=== PATIENT | male | born 1940 | race Caucasian/White ===

== ENCOUNTER 2018-03-05 00:02 | Emergency (ER) | payer MEDICARE, OTHER ==
[~2018-03-05] VITALS: Ht 177.8 cm; Wt 99.6 kg
--- NOTE | 2018-03-05 00:26 | PHYS DOC ---
Adult General Chief Complaint Chief Complaint: CHEST PAIN [facility] HPI 77-year-old male with a history of coronary disease status post multiple stents in 2015 presents with approximately 2 hour history of chest discomfort. He states it's tightness across his chest. He states at home he took 3 back-to- back nitroglycerin with no relief of his pain he waited approximately 15 minutes took 3 more with no effect and then possibly 20 minutes after that took 3 more nitroglycerin for a total of 9 nitroglycerin with very little help in regards to his chest pain. He didn't became very concerned and called EMS and on their arrival they gave him 4 baby aspirin. He states after he took a baby aspirin the pain resolved. He denies any nausea. He denies diaphoresis. He denies any shortness of breath or dyspnea on exertion. He states he's unsure whether these pains feel similar to his previous heart attack.[] Review of Systems Review of Systems Constitutional: Denies fever or chills [] Eyes: Denies change in visual acuity, redness, or eye pain [] HENT: Denies nasal congestion or sore throat [] Respiratory: Denies cough or shortness of breath [] Cardiovascular: No additional information not addressed in HPI [] GI: Denies abdominal pain, nausea, vomiting, bloody stools or diarrhea [] : Denies dysuria or hematuria [] Musculoskeletal: Denies back pain or joint pain [] Integument: Denies rash or skin lesions [] Neurologic: Denies headache, focal weakness or sensory changes [] Endocrine: Denies polyuria or polydipsia [] All other systems were reviewed and found to be within normal limits, except as documented in this note. Allergies Allergies Allergies Coded Allergies Type Severity Reaction Last Updated Verified penicillin G Allergy Unknown 03/05/18 Yes penicillin G procaine Allergy Unknown 03/05/18 Yes Physical Exam Physical Exam Constitutional: Well developed, well nourished, no acute distress, non-toxic appearance. [] HENT: Normocephalic, atraumatic, bilateral external ears normal, oropharynx moist, no oral exudates, nose normal. [] Eyes: PERRLA, EOMI, conjunctiva normal, no discharge. [] Neck: Normal range of motion, no tenderness, supple, no stridor. [] Cardiovascular:Heart rate regular rhythm, no murmur [] Lungs & Thorax: Bilateral breath sounds clear to auscultation [] Abdomen: Bowel sounds normal, soft, no tenderness, no masses, no pulsatile masses. [] Skin: Warm, dry, no erythema, no rash. [] Back: No tenderness, no CVA tenderness. [] Extremities: No tenderness, no cyanosis, no clubbing, ROM intact, no edema. [] Neurologic: Alert and oriented X 3, normal motor function, normal sensory function, no focal deficits noted. [] Psychologic: Affect normal, judgement normal, mood normal. [] Current Patient Data Lab Results Laboratory Tests Test 03/05/18 00:14 White Blood Count 5.9 x10^3/uL Red Blood Count 5.00 x10^6/uL Hemoglobin 15.4 g/dL Hematocrit 44.7 % Mean Corpuscular Volume 90 fL Mean Corpuscular Hemoglobin 31 pg Mean Corpuscular Hemoglobin Concent 34 g/dL Red Cell Distribution Width 13.7 % Platelet Count 174 x10^3/uL Neutrophils (%) (Auto) 59 % Lymphocytes (%) (Auto) 28 % Monocytes (%) (Auto) 9 % Eosinophils (%) (Auto) 3 % Basophils (%) (Auto) 1 % Neutrophils # (Auto) 3.5 x10^3uL Lymphocytes # (Auto) 1.6 x10^3/uL Monocytes # (Auto) 0.5 x10^3/uL Eosinophils # (Auto) 0.2 x10^3/uL Basophils # (Auto) 0.0 x10^3/uL Prothrombin Time 9.9 SEC Prothromb Time International Ratio 1.0 Sodium Level 139 mmol/L Potassium Level 3.8 mmol/L Chloride Level 103 mmol/L Carbon Dioxide Level 27 mmol/L Anion Gap 9 Blood Urea Nitrogen 14 mg/dL Creatinine 1.1 mg/dL Estimated GFR (Cockcroft-Gault) 64.7 BUN/Creatinine Ratio 13 Glucose Level 125 mg/dL Calcium Level 8.9 mg/dL Total Bilirubin 0.3 mg/dL Aspartate Amino Transf (AST/SGOT) 19 U/L Alanine Aminotransferase (ALT/SGPT) 36 U/L Alkaline Phosphatase 103 U/L Troponin I Quantitative 0.137 ng/mL [id number] Natriuretic Peptide 70 pg/mL Total Protein 7.6 g/dL Albumin 3.9 g/dL Albumin/Globulin Ratio 1.1 EKG EKG [EKG: Normal sinus rhythm rate of [address]-T changes] Radiology/Procedures Radiology/Procedures [Chest x-ray: Negative exam as interpreted by me] Course & Med Decision Making Course & Med Decision Making Pertinent Labs and Imaging studies reviewed. 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 He had what sounded like two-hour history of typical chest discomfort alleviated by nitroglycerin and aspirin. His EKG was negative here his chest x-ray was negative first troponin was 0.1. He was given 1 mg/kg of Lovenox and topical nitroglycerin was placed. The patient remained chest pain- free throughout his stay in the department. Given his elevated troponin and likely need for intervention patient will be transferred to [place] for further evaluation.] Dragon Disclaimer Dragon Disclaimer This electronic medical record was generated, in whole or in part, using a voice recognition dictation system. Departure Departure: Impression: Primary Impression: Chest pain Disposition: 05 XFER OTHER ([place]) Condition: GUARDED Problem Qualifiers Primary Impression: Chest pain Chest pain type: unspecified Qualified Codes: R07.9 - Chest pain, unspecified KARIE KABA DO Mar 05, 2018 00:26
[2018-03-05 00:32] LABS: BASO % 1 % (0-3); EOS # 0.2 x10^3/uL (0.0-0.7); EOS % 3 % (0-3); HEMATOCRIT 44.7 % (39.0-53.0); HEMOGLOBIN 15.4 g/dL (13.0-17.5); LYMPH # 1.6 x10^3/uL (1.0-4.8); LYMPH % 28 % (24-48); MEAN CORPUSCULAR HEMOGLOBIN 31 pg (25-35); MEAN CORPUSCULAR HGB CONC 34 g/dL (31-37); MEAN CORPUSCULAR VOLUME 90 fL (79-100); MONO # 0.5 x10^3/uL (0.0-1.1); MONO % 9 % (0-9); NEUT # 3.5 x10^3uL (1.8-7.7); NEUT % 59 % (31-73); PLATELET COUNT 174 x10^3/uL (140-400); RED CELL DISTRIBUTION WIDTH 13.7 % (11.5-14.5); WHITE BLOOD COUNT 5.9 x10^3/uL (4.0-11.0)
--- NOTE | 2018-03-05 00:44 | EKG ---
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
[2018-03-05 00:49] LABS: ALBUMIN 3.9 g/dL (3.4-5.0); ALBUMIN/GLOBULIN RATIO 1.1 (1.0-1.7); CALCIUM 8.9 mg/dL (8.5-10.1); CREATININE 1.1 mg/dL (0.7-1.3); GFR 64.7; POTASSIUM 3.8 mmol/L (3.5-5.1); TOTAL BILIRUBIN 0.3 mg/dL (0.2-1.0); TOTAL PROTEIN 7.6 g/dL (6.4-8.2)
[2018-03-05] MEDS ORDERED: NITROGLYCERIN OINT 1 GM PACKET. TP ONE (01:00)
[2018-03-05] MEDS ORDERED: ENOXAPARIN ** NOTE DOSE ** SYRINGE SQ ONE (01:00)
--- NOTE | 2018-03-05 01:05 | RAD ---
Indication: Chest pain. TECHNIQUE: Portable AP upright chest x-ray COMPARISON: None FINDINGS: Heart is normal in size. Minimal likely subsegmental atelectasis in the left lung base. Otherwise, lungs are clear. Punctate calcified granuloma is seen in the right lung apex. No pneumothorax or pleural effusion. Visualized bony thorax within normal limits. IMPRESSION: No acute cardiopulmonary process. Electronically signed by: Dharmesh King DO (03/05/2018 1:02 AM) [facility]
[2018-03-05 01:38] VITALS: BP 155/86
== END 2018-03-05 02:10 | disposition short-term general hospital (02) ==
LOC: ER 00:02
DX: R07.89 Other chest pain (principal); I25.10 Atherosclerotic heart disease of native coronary artery without angina pectoris; Z88.0 Allergy status to penicillin
CPT/HCPCS: 36415; 71045; 80053; 83880; 84484; 85025; 85610; 93005; 96372; 99285; J1650

== ENCOUNTER 2018-07-02 17:54 | Inpatient (IN) | payer MEDICARE, OTHER ==
[~2018-07-02] VITALS: Ht 177.8 cm; Wt 88.2 kg
[2018-07-02] MEDS ORDERED: IV RINGERS SOLUTION,LACTATED 1,000 ML IV SCH (18:03)
--- NOTE | 2018-07-02 18:03 | ED.ADGEN ---
Past History Past Medical History: CAD, CVA, High Cholesterol, Hypertension, Migraines, TIA , Other Past Surgical History: Coronary Bypass Surgery, Other Alcohol Use: None Drug Use: None Adult General Chief Complaint Chief Complaint ".. I ve had this headache since yesterday... top my head.. " (Note previous report on this patient lost s during computer glitch- may have duplication and inconsistencies_) " I did have some vision loss in my Lt eye 3 days ago.. I got a MRI and said it was due to small vessel changes." " This headache has een present the last 2 days.." HPI HPI Patient is a 78 year old male who presents with above hx and complaints of headache. Patient localizes headache to the top of his head. No history of trauma. No history of changes in vision. No other focal defects noted. Patient has had no change in meds. Patient is no longer anticoagulated since his quadruple bypass in March 09 of this past year at [facility]. Patient does take a daily aspirin. No recent travel. No specific ill contacts. Does have extensive medical history of hypertension/ hypotension, urinary artery disease, elevated cholesterol, CVA. [place] Coma Scale 14. Review of Systems Review of Systems Constitutional: Denies fever or chills [] Eyes: Denies change in visual acuity, redness, or eye pain [] HENT: Denies nasal congestion or sore throat [] Respiratory: Denies cough or shortness of breath [] Cardiovascular: No additional information not addressed in HPI [] GI: Denies abdominal pain, nausea, vomiting, bloody stools or diarrhea [] : Denies dysuria or hematuria [] Musculoskeletal: Denies back pain or joint pain [] Integument: Denies rash or skin lesions [] Neurologic: Complaints of headache, denies focal weakness or sensory changes [] does have recent vision loss and left eye Endocrine: Denies polyuria or polydipsia [] All other systems were reviewed and found to be within normal limits, except as documented in this note. Family History Family History Non-contributory Current Medications Current Medications See nursing for home meds Allergies Allergies Allergies Coded Allergies Type Severity Reaction Last Updated Verified penicillin G Allergy Unknown 03/05/18 Yes penicillin G procaine Allergy Unknown 03/05/18 Yes Physical Exam Physical Exam Constitutional: no acute distress, non-toxic appearance. [] HENT: Normocephalic, atraumatic, bilateral external ears normal, oropharynx moist, no oral exudates, nose normal. Temporal arteries are nontender. Eyes: PERRLA, EOMI, conjunctiva normal, no discharge. [] Can see light and fingers in left eye but markedly changed 3 days ago- per patient-( recent work up with MRI) Glasses. Neck: Normal range of motion, no tenderness, supple, no stridor. [] Cardiovascular: Bradycardia Heart rate regular rhythm, no murmur [] Lungs & Thorax: Bilateral breath sounds clear to auscultation []midline scar Abdomen: Bowel sounds normal, soft, no tenderness, no masses, no pulsatile masses. [] Skin: Warm, dry, no erythema, no rash. [] Back: No tenderness, no CVA tenderness. [] Extremities: No tenderness, no cyanosis, no clubbing, ROM intact, no edema. [] Neurologic: Alert and oriented X 3, normal motor function, normal sensory function, no focal deficits noted. [] Psychologic: Affect anxious, judgement normal, mood normal. [] Current Patient Data Vital Signs Vital Signs Date Time Temp Pulse Resp B/P (MAP) Pulse Ox O2 Delivery O2 Flow Rate FiO2 07/02/18 17:54 Room Air 07/02/18 17:54 59 17 95 Lab Results Laboratory Tests Test 07/02/18 17:55 White Blood Count 6.0 x10^3/uL (4.0-11.0) Red Blood Count 5.18 x10^6/uL (4.30-5.70) Hemoglobin 13.9 g/dL (13.0-17.5) Hematocrit 42.2 % (39.0-53.0) Mean Corpuscular Volume 81 fL (79-100) Mean Corpuscular Hemoglobin 27 pg (25-35) Mean Corpuscular Hemoglobin Concent 33 g/dL (31-37) Red Cell Distribution Width 17.0 % (11.5-14.5) H Platelet Count 168 x10^3/uL (140-400) Neutrophils (%) (Auto) 62 % (31-73) Lymphocytes (%) (Auto) 26 % (24-48) Monocytes (%) (Auto) 9 % (0-9) Eosinophils (%) (Auto) 2 % (0-3) Basophils (%) (Auto) 1 % (0-3) Neutrophils # (Auto) 3.7 x10^3uL (1.8-7.7) Lymphocytes # (Auto) 1.6 x10^3/uL (1.0-4.8) Monocytes # (Auto) 0.5 x10^3/uL (0.0-1.1) Eosinophils # (Auto) 0.1 x10^3/uL (0.0-0.7) Basophils # (Auto) 0.0 x10^3/uL (0.0-0.2) Erythrocyte Sedimentation Rate 5 (0-15) Prothrombin Time 9.9 SEC (9.4-11.4) Prothrombin Time INR 1.0 (0.9-1.1) PTT 25 SEC (23-33) D-Dimer (Christie) 1.35 mg/L (0.00-0.50) H Urine Collection Type Unknown Urine Color Straw Urine Clarity Hazy Urine pH 7.0 Urine Specific [place] 1.015 Urine Protein Neg (NEG-TRACE) Urine Glucose (UA) Neg mg/dL (NEG) Urine Ketones (Stick) Neg mg/dL (NEG) Urine Blood Trace (NEG) Urine Nitrite Neg (NEG) Urine Bilirubin Neg (NEG) Urine Urobilinogen Dipstick 0.2 mg/dL (0.2 mg/dL) Urine Leukocyte Esterase Neg (NEG) Urine RBC Occ /HPF (0-2) Urine WBC Occ /HPF (0-4) Urine Squamous Epithelial Cells Few /LPF Urine Bacteria Few /HPF (0-FEW) Sodium Level 141 mmol/L (136-145) Potassium Level 3.9 mmol/L (3.5-5.1) Chloride Level 104 mmol/L (98-107) Carbon Dioxide Level 32 mmol/L (21-32) Anion Gap 5 (6-14) L Blood Urea Nitrogen 16 mg/dL (8-26) Creatinine 1.3 mg/dL (0.7-1.3) Estimated GFR (Cockcroft-Gault) 53.3 Glucose Level 127 mg/dL (70-99) H Calcium Level 9.3 mg/dL (8.5-10.1) Magnesium Level 1.9 mg/dL (1.8-2.4) Total Bilirubin 0.5 mg/dL (0.2-1.0) Direct Bilirubin 0.1 mg/dL (0.0-0.2) Aspartate Amino Transferase (AST) 23 U/L (15-37) Alanine Aminotransferase (ALT) 37 U/L (16-63) Alkaline Phosphatase 112 U/L (46-116) Creatine Kinase 75 U/L (39-308) Troponin I Quantitative < 0.017 ng/mL (0-0.055) JP-Hrd-S-Type Natriuretic Peptide 362 pg/mL (0-449) Total Protein 7.4 g/dL (6.4-8.2) Albumin 3.7 g/dL (3.4-5.0) Lipase 97 U/L (73-393) Urine Opiates Screen Neg (NEG) Urine Methadone Screen Neg (NEG) Urine Barbiturates Neg (NEG) Urine Phencyclidine Screen Neg (NEG) Urine Amphetamine/Methamphetamine Neg (NEG) Urine Benzodiazepines Screen Neg (NEG) Urine Cocaine Screen Neg (NEG) Urine Cannabinoids Screen Neg (NEG) Urine Ethyl Alcohol Neg (NEG) EKG EKG My interpretation EKG shows a sinus rhythm at 61 bpm. Inferior changes.[] Radiology/Procedures Radiology/Procedures CT of head shows no shift, mass, edema, bleed, or fracture. Does have generalized parenchymal atrophy. Does have old lacunar infarct right internal capsule. My interpretation of chest x-ray shows findings of recent coronary artery bypass graft wires. No acute changes. Borderline cardiomegaly. Ultrasound of legs and carotid Dopplers pain at time of admission. Course & Med Decision Making Course & Med Decision Making Pertinent Labs and Imaging studies reviewed. (See chart for details)- (note there may be duplication and errors when record- reports loss due computer glitch- [employer] notified) Patient be admitted to Dr. Hale- Neurology Consult Habib [] Final Impression Final Impression 1. Head Ache[]X 2days 2. Recent vision Loss in Lt eye- 3 days ago 3. Hx. CARDZ- S/P CABG x 4 - March 09 4. Hx. of DM 5. Hx. of HTN and Hypotension 6. Hx of CVA 7. Elevated D-dimer =1.35 Dragon Disclaimer Dragon Disclaimer This electronic medical record was generated, in whole or in part, using a voice recognition dictation system. KEREN WEBB MD Jul 02, 2018 18:03
[2018-07-02] MEDS ORDERED: oxyCODONE/APAP 5/325 1 TAB TABLET PO ONE (18:15)
--- NOTE | 2018-07-02 18:21 | RAD ---
CT scan of the head without contrast 07/02/2018 Clinical History: Severe headache since earlier today. Left eye blindness for one week. Code stroke. Technique: Unenhanced, contiguous, 5 mm axial sections were obtained through the head. One or more of the following individualized dose reduction techniques were utilized for this study: 1. Automated exposure control. 2. Adjustment of the mA and/or kV according to patient size. 3. Use of iterative reconstruction technique. Findings: No previous imaging studies are available for comparison. There is generalized parenchymal atrophy. Areas of decreased attenuation are seen within the periventricular and subcortical white matter of both cerebral hemispheres consistent with areas of small vessel ischemic disease. An old area of lacunar infarction is seen in the anterior limb of the right internal capsule. This measures 1.8 cm in size. No acute parenchymal abnormality is seen. No extra-axial fluid collection is noted. No skull fracture is seen. The visualized orbits are within normal limits. Impression:. No acute intracranial abnormality is seen. This was result was called to Dr. Pantoja at 1812 hours. Electronically signed by: Robby Guerrero MD (07/02/2018 6:17 PM) [facility]
--- NOTE | 2018-07-02 18:26 | EKG ---
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
[2018-07-02 18:29] LABS: BASO % 1 % (0-3); EOS # 0.1 x10^3/uL (0.0-0.7); EOS % 2 % (0-3); HEMATOCRIT 42.2 % (39.0-53.0); HEMOGLOBIN 13.9 g/dL (13.0-17.5); LYMPH # 1.6 x10^3/uL (1.0-4.8); LYMPH % 26 % (24-48); MEAN CORPUSCULAR HEMOGLOBIN 27 pg (25-35); MEAN CORPUSCULAR HGB CONC 33 g/dL (31-37); MEAN CORPUSCULAR VOLUME 81 fL (79-100); MONO # 0.5 x10^3/uL (0.0-1.1); MONO % 9 % (0-9); NEUT # 3.7 x10^3uL (1.8-7.7); NEUT % 62 % (31-73); PLATELET COUNT 168 x10^3/uL (140-400); RED BLOOD COUNT 5.18 x10^6/uL (4.30-5.70)
[2018-07-02 18:35] LABS: BARBITURATES NEG (NEG); BENZODIAZEPINES NEG (NEG); CANNABINOIDS NEG (NEG); COCAINE NEG (NEG); METHADONE NEG (NEG); OPIATES NEG (NEG); PHENCYCLIDINE NEG (NEG)
[2018-07-02 18:36] LABS: AMPHETAMINE/METHAMPHETAMINE NEG (NEG)
[2018-07-02 18:39] LABS: BACTERIA,URINE FEW /HPF (0-FEW); BILIRUBIN,URINE NEG (NEG); CLARITY,URINE HAZY; COLOR,URINE STRAW; GLUCOSE,URINE NEG (NEG); NITRITE,URINE NEG (NEG); RBC,URINE OCC /HPF (0-2); SQUAMOUS EPITHELIAL CELL,UR FEW /LPF; UROBILINOGEN,URINE 0.2 mg/dL (0.2 mg/dL); WBC,URINE OCC /HPF (0-4)
[2018-07-02 18:52] LABS: ALBUMIN 3.7 g/dL (3.4-5.0); CALCIUM 9.3 mg/dL (8.5-10.1); CREATININE 1.3 mg/dL (0.7-1.3); DIRECT BILIRUBIN 0.1 mg/dL (0.0-0.2); GFR 53.3; MAGNESIUM 1.9 mg/dL (1.8-2.4); POTASSIUM 3.9 mmol/L (3.5-5.1); TOTAL BILIRUBIN 0.5 mg/dL (0.2-1.0); TOTAL PROTEIN 7.4 g/dL (6.4-8.2)
[2018-07-02 19:37] LABS: SEDIMENTATION RATE 5 (0-15)
[2018-07-02] MEDS ORDERED: cloNIDine TTS-2 1 PATCH PATCH TD ONE (19:45)
[2018-07-02] MEDS ORDERED: oxyCODONE/APAP 5/325 1 TAB TABLET PO PRN (19:45)
[2018-07-02] MEDS ORDERED: ONDANSETRON PF 4 MG/2 ML VIAL. IV PRN (19:45)
[2018-07-02] MEDS ORDERED: cloNIDine TTS-1 1 PATCH PATCH TD ONE (20:00)
--- NOTE | 2018-07-02 20:44 | RAD ---
AP portable chest radiograph 07/02/2018 Clinical History: Stroke. History of coronary artery disease. An AP erect portable digital radiograph of the chest was obtained. Comparison study is dated 03/05/2018. The patient is post CABG procedure. The cardiac silhouette is normal in size. The thoracic aorta is mildly tortuous. No acute pulmonary infiltrate is seen. No pleural effusion or pneumothorax is noted. The osseous structures are unchanged. Impression: No acute abnormality is seen. Electronically signed by: Robby Guerrero MD (07/02/2018 8:40 PM) [facility]
--- NOTE | 2018-07-02 20:50 | RAD ---
Bilateral lower extremity venous duplex study 07/02/2018 Clinical History: Bilateral leg pain. Technique: Using a combination of real time ultrasound imaging and color-flow and pulse Doppler imaging techniques along with graded compression and augmentation, duplex evaluation of the deep venous system of the both lower extremities was performed. Multiple images were obtained. Findings: There is no sonographic evidence of deep venous thrombosis involving the visualized deep venous structures of either lower extremity. Impression: Negative study. Electronically signed by: Robby Guerrero MD (07/02/2018 8:46 PM) [facility]
--- NOTE | 2018-07-02 20:52 | RAD ---
Bilateral carotid arterial duplex study 07/02/2018 Clinical History: Headache and vision loss for the last 3 days. Technique: Using a combination of real-time ultrasound imaging and color-flow and pulse Doppler imaging techniques, duplex evaluation of the carotid and vertebral arterial structures within the neck was performed. Multiple images were obtained. Velocity measurements estimating the degree of stenosis are based on NASCET criteria. Findings: Mild atheromatous plaque formation is seen involving both carotid bifurcations. The peak systolic velocities are not significantly elevated. No hemodynamically significant stenosis is seen. The vertebral arteries demonstrate normal antegrade flow. Impression: Mild atheromatous plaque formation is seen involving both carotid bifurcations. No hemodynamically significant stenosis is seen. Electronically signed by: Robby Guerrero MD (07/02/2018 8:48 PM) [facility]
[2018-07-02] MEDS: ENOXAPARIN ** NOTE DOSE ** SYRINGE SQ SCH (22:35)
[2018-07-02 23:13] VITALS: BP 182/81
[2018-07-03 02:50] VITALS: BP 181/83
[2018-07-03 04:31] VITALS: BP 163/83
[2018-07-03 06:48] LABS: BASO % 1 % (0-3); EOS # 0.1 x10^3/uL (0.0-0.7); EOS % 3 % (0-3); HEMATOCRIT 39.9 % (39.0-53.0); HEMOGLOBIN 13.3 g/dL (13.0-17.5); LYMPH # 1.5 x10^3/uL (1.0-4.8); LYMPH % 27 % (24-48); MEAN CORPUSCULAR HEMOGLOBIN 27 pg (25-35); MEAN CORPUSCULAR HGB CONC 33 g/dL (31-37); MEAN CORPUSCULAR VOLUME 81 fL (79-100); MONO # 0.5 x10^3/uL (0.0-1.1); MONO % 10 % (0-9); NEUT # 3.3 x10^3uL (1.8-7.7); NEUT % 60 % (31-73); PLATELET COUNT 166 x10^3/uL (140-400); RED BLOOD COUNT 4.91 x10^6/uL (4.30-5.70); RED CELL DISTRIBUTION WIDTH 16.5 % (11.5-14.5); WHITE BLOOD COUNT 5.5 x10^3/uL (4.0-11.0)
[2018-07-03 06:51] LABS: CALCIUM 8.8 mg/dL (8.5-10.1); CREATININE 1.1 mg/dL (0.7-1.3); GFR 64.6; POTASSIUM 3.6 mmol/L (3.5-5.1)
[2018-07-03] MEDS ORDERED: METO25TA4 PO (08:11)
[2018-07-03] MEDS ORDERED: TAMS0.4C2 PO (08:11)
[2018-07-03] MEDS ORDERED: ATOR40TA59 PO (08:11)
[2018-07-03] MEDS ORDERED: FURO20TA3 PO (08:11)
[2018-07-03] MEDS ORDERED: MIRA50TA PO (08:11)
[2018-07-03] MEDS ORDERED: MULT1TAB52 PO (08:11)
[2018-07-03] MEDS ORDERED: BENA20TA4 PO (08:11)
[2018-07-03] MEDS ORDERED: ASPI325T8 PO (08:11)
[2018-07-03] MEDS: ENOXAPARIN ** NOTE DOSE ** SYRINGE SQ SCH ×2 (08:30→21:48)
[2018-07-03] MEDS: ASPIRIN 81 MG TAB.CHEW PO SCH (08:30)
[2018-07-03 10:27] VITALS: BP 157/78
[2018-07-03 14:52] VITALS: BP 146/77
--- NOTE | 2018-07-03 14:52 | HP ---
ADMIT DATE: 07/02/2018 HISTORY OF PRESENT ILLNESS: The patient is a 78-year-old male patient who came to the Emergency Room complaining of headache that apparently started over the last 3 days. He has some problem with his memory and apparently he has some vision loss in his left eye. About 3 days ago, he was seen by an route manager and had an MRI and MRA of his neck and head and according to him, the route manager told him that he has lost his vision in the left eye. 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 He was extensively investigated in the Emergency Room including lab work and imaging studies and was admitted to consult a neurologist and to decide on further management accordingly. PAST MEDICAL HISTORY: Significant for hypertension, hyperlipidemia, coronary artery disease status post stenting on 02/14/2018 and again another 2 stents in September 2018 and eventually he has had coronary artery bypass graft surgery on 04/07/2018. He has osteoarthritis, overactive bladder, chronic sinusitis, obstructive sleep apnea, and central sleep apnea on VPAP. He is also known to have benign prostatic hypertrophy. PAST SURGICAL HISTORY: Significant for PCI with stent deployment x 3. He has septoplasty, coronary artery bypass graft surgery. 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 He underwent esophagogastroduodenoscopy and colonoscopy. ALLERGIES: He is allergic to BICILLIN. FAMILY HISTORY: He has 3 brothers, the youngest has 3 stents, the other one has 2 stents, and the oldest is healthy. All his 3 sisters had heart disease, one because of breast cancer and two of them because of myocardial infarction. His father at the age of 76 because of myocardial infarction and mother at the age of 86 because of myocardial infarction. SOCIAL HISTORY: He is , has a daughter and a son. 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 REVIEW OF SYSTEMS: He obviously has visual loss in the left eye and had bilateral cataract extraction and laser photocoagulation on the left eye. 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 He has bilateral hearing aids. He had septoplasty, but denied any stuffy nose, postnasal drip, or nasal bleed. Denied any sore throat, sore tongue, toothache, hoarseness of voice, or difficulty swallowing. Denied any nausea, vomiting, diarrhea, or constipation. Denied any hematemesis, melena, or hematochezia. Denied any dysuria, frequency, or hematuria. Denied any chest pain, shortness of breath, orthopnea, or paroxysmal nocturnal dyspnea. Denied any cough, phlegm, or hemoptysis. Denied any chills, rigors, or fever. Denied any dizziness or lightheadedness, but did complain that he is unsteady in his gait. PHYSICAL EXAMINATION: GENERAL: On examining him, he looked well and was clearly in no apparent respiratory distress. No pallor, jaundice, cyanosis, or thyromegaly. No jugular venous distention. No lower limb edema. VITAL SIGNS: His heart rate was 59, blood pressure was 196/86, temperature was 98, respiratory rate was 20, and oxygen saturation was 96%. HEAD, EYES, EARS, NOSE, AND THROAT: Showed normocephalic, atraumatic. NECK: Supple. HEART: Showed normal first and second heart sounds with no gallop, rub, or murmur. CHEST: Clear to auscultation. No crepitation or rhonchi. ABDOMEN: Distended, soft, nontender. No guarding or rigidity. No organomegaly. All hernial orifices intact. Bowel sounds normal. NEUROLOGIC: He was awake, alert, responding appropriately. All cranial nerves intact. He moves extremities without difficulty. He ambulates without assistance or assistive devices. LABORATORY DATA: His lab work on admission showed that his white cell count was 6000, hemoglobin 14, hematocrit 42, MCV 81, and platelet count of 168,000. Her prothrombin time was 9.9, INR of 1, aPTT was 25, and D-dimer was 1.35 mg/dL. His chemistry showed a serum sodium of 141, potassium 3.9, chloride 104, bicarbonate 32, anion gap of 5, BUN 16, creatinine 1.3, estimated GFR was 53 mL per minute. His glucose was 127, calcium was 9.3, magnesium was 1.9. Total bilirubin, AST, ALT, alkaline phosphatase were normal. His beta-natriuretic peptide was 362. Total protein was 7.4, albumin 3.7. His urinalysis was essentially unremarkable. Urine was negative for nitrite and leukocyte esterase, had very few bacteria. His urine toxicology screen was negative. He has had a CT scan of the head, which showed there is generalized parenchymal atrophy. Areas of decreased attenuation are seen within the periventricular and subcortical white matter of both cerebral hemispheres consistent with areas of small vessel ischemic disease. An old area of lacunar infarct is seen in the anterior limbs of the right internal capsule. This measures about 1.8 cm in size. No acute parenchymal abnormality is seen. No extraaxial fluid collection is noted. No skull fracture is seen. The visualized orbits are within normal limits. His chest x-ray showed that the patient is post-CABG procedure. The cardiac silhouette is normal in size. The thoracic aorta is mildly tortuous. No acute pulmonary infiltrate is seen. No pleural effusion or pneumothorax is noted. The osseous structures are unchanged, and given his high D-dimer, he underwent bilateral lower extremity Doppler ultrasound, which showed that there is no sonographic evidence of deep vein thrombosis involving the visualized deep venous structure of either lower extremity. The patient was admitted and continued on all his medication. He was continued on Lovenox, aspirin and we will consult the neurologist and decide on further management accordingly. Interestingly, his sed rate on admission was only 5 mm/hour. Given the fact he was extensively investigated in [place] by his route manager, we will get the records of all the investigations and imaging studies from there before we proceed with any further investigation. ESVIN TODD MD DR: GAURAV/carol JOB#: [id number] / [id number]
[2018-07-03 19:34] VITALS: BP 154/82
[2018-07-03] MEDS ORDERED: ATORVASTATIN CALCIUM 20 MG TABLET PO SCH (21:00)
[2018-07-03] MEDS ORDERED: TAMSULOSIN 0.4 MG CAP.ER.24H. PO SCH (21:00)
[2018-07-03] MEDS: METOPROLOL TART IMMED RELEASE 25 MG TABLET PO SCH (21:48)
[2018-07-03 22:54] VITALS: BP 155/81
--- NOTE | 2018-07-03 23:32 | PN ---
DATE: 07/03/2018 SUBJECTIVE: The patient is sitting comfortably in his bed, in no apparent distress. He continued to have a headache, mostly in the left side and blurred vision in his left eye, but denied any weakness, tingling, or numbness. He did complain also of unsteady gait. He was extensively investigated and has multiple imaging studies including CT scan of the head, chest x-ray, bilateral lower extremity Doppler ultrasound. His bilateral carotid Doppler ultrasound showed that there is mild atheromatous plaque formation seen involving both carotid bifurcation, no hemodynamically significant stenosis seen. OBJECTIVE: GENERAL: When I examined him this afternoon, he looked well and was clearly in no apparent respiratory distress. No pallor, jaundice, cyanosis, lymphadenopathy or thyromegaly. No jugular venous distension. No limb edema. VITAL SIGNS: Her heart rate was 69, blood pressure was 157/78, temperature was 98.4. His oxygen saturation was 93% on room air. The rest of clinical examination is stable, has not really changed. LABORATORY DATA: Her lab work this morning showed a white cell count 5500, hemoglobin 13.3, hematocrit 39, MCV 81, platelet count of 166,000. His chemistry this morning showed a serum sodium of 141, potassium 3.6, chloride 105, bicarbonate 32, anion gap of 4, BUN 12, creatinine 1.1, estimated GFR was 64 mL per minute. His glucose was 76, calcium was 8.8. 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 The patient has a history of lacunar infarct involving the anterior limb of the right internal capsule, measuring about 1 cm in size, no acute parenchymal abnormality seen. He has a multitude of medical problems including hypertension, hyperlipidemia, coronary artery disease status post stent deployment x 3, coronary artery bypass graft surgery, overactive bladder, chronic sinusitis, central obstructive sleep apnea, on VPAP. PLAN: To continue with all his current medication. We will continue with Lovenox. We have requested the records from his housekeeping lead in [place] and we will decide on further management accordingly. I would also consult the physical and occupational therapist. ESVIN TODD MD DR: GAURAV/carol JOB#: [id number] / [id number]
[2018-07-04 05:17] VITALS: BP 162/83
[2018-07-04 06:21] LABS: HEMATOCRIT 44.5 % (39.0-53.0); HEMOGLOBIN 14.7 g/dL (13.0-17.5); RED BLOOD COUNT 5.46 x10^6/uL (4.30-5.70); RED CELL DISTRIBUTION WIDTH 16.8 % (11.5-14.5); WHITE BLOOD COUNT 5.5 x10^3/uL (4.0-11.0)
[2018-07-04 06:36] LABS: ALBUMIN 3.5 g/dL (3.4-5.0); ALBUMIN/GLOBULIN RATIO 0.9 (1.0-1.7); CALCIUM 9.2 mg/dL (8.5-10.1); CREATININE 1.2 mg/dL (0.7-1.3); GFR 58.4; POTASSIUM 3.7 mmol/L (3.5-5.1); TOTAL BILIRUBIN 0.6 mg/dL (0.2-1.0); TOTAL PROTEIN 7.2 g/dL (6.4-8.2)
[2018-07-04] MEDS ORDERED: FUROSEMIDE 20 MG TABLET PO SCH (09:00)
[2018-07-04] MEDS ORDERED: ASPIRIN 325 MG TABLET PO SCH (09:00)
[2018-07-04] MEDS ORDERED: MIRABEGRON 25 MG TAB.ER.24H PO SCH (09:00)
[2018-07-04] MEDS ORDERED: MULTIVITAMIN with MINERAL TABLET. PO SCH (09:00)
[2018-07-04] MEDS: ENOXAPARIN ** NOTE DOSE ** SYRINGE SQ SCH (09:00)
[2018-07-04] MEDS ORDERED: LISINOPRIL 20 MG TABLET PO SCH (09:00)
[2018-07-04] MEDS: METOPROLOL TART IMMED RELEASE 25 MG TABLET PO SCH (09:02)
[2018-07-04] MEDS: ASPIRIN 81 MG TAB.CHEW PO SCH (09:02)
[2018-07-04 10:28] VITALS: BP 129/72
--- NOTE | 2018-07-04 18:48 | DS ---
DATE OF DISCHARGE: 07/04/2018 HOSPITAL COURSE: The patient is a 78-year-old male patient, who came to the Emergency Room complaining of headache that apparently started over the last 3 days. He has some problems with his memory. Apparently he has some vision loss in his left eye. He was seen by an beam builder helper, had actually a CT scan of the head and CT scan of the orbit, and the CT scan of the orbit was done with and without contrast and he apparently was diagnosed with ischemic optic neuropathy. The CT scan of the head showed that there was mild diffuse cerebral atrophy. No midline shift and no acute hemorrhage or ischemic changes, no enhancing mass or mass effect and periventricular chronic ischemic white matter disease changes with a lacunar infarct in the right basal ganglia, unchanged. We actually repeated all this imaging here and lab work, his white cell count was consistently normal. In fact, his sedimentation rate was only 5 mm per hour and we repeated his CT scan of the head, which again showed that he has generalized parenchymal atrophy, areas of decreased attenuation are seen within the periventricular and subcortical white matter of both cerebral hemispheres consistent with area of small vessel ischemic disease. He has an old area of lacunar infarction seen in the anterior limb of the right internal capsule, it measures 1.8 cm in size, no acute parenchymal abnormality seen. No extraaxial fluid collection is noted. No skull fracture is seen. The visualized orbits are within normal limits. His chest x-ray was unremarkable. Given his elevated D-dimer, he underwent bilateral venous Doppler ultrasound of both lower extremities, which showed there was no sonographic evidence of deep venous thrombosis involving the visualized deep venous structures of either lower extremity and has had also bilateral carotid arterial Doppler ultrasound, which showed mild atheromatous plaque formation, is seen involving both carotid bifurcation. The peak systolic velocities were not significantly elevated. No hemodynamically significant stenosis seen. The vertebral arteries demonstrated normal antegrade flow. The patient remained hemodynamically stable and apparently was seen by the neurologist and he remained hemodynamically stable. His lab works are within normal range. He has no evidence of carotid stenosis and his sed rate and C-reactive protein was low both there at [facility] done on 06/20/2018 and again this time running out the possibility of giant cell arteritis. I had a lengthy discussion with the patient and I explained to him that he is better off going home and follow up with his beam builder helper, neurologist and dental ceramist helper. PHYSICAL EXAMINATION: GENERAL: When I saw him this morning, he looked well and was clearly in no apparent respiratory distress. No pallor, jaundice or cyanosis. No lymphadenopathy, no thyromegaly. No jugular venous distension. No lower limb edema. VITAL SIGNS: His heart rate was 70, blood pressure was 129/72, temperature was 98, respiratory rate 20, and oxygen saturation was 93% on room air. HEAD, EYES, EARS, NOSE AND THROAT: Showed normocephalic, atraumatic. NECK: Supple. HEART: Showed normal first and second heart sounds. No gallop, rub or murmur. CHEST: Clear to auscultation. No crepitation or rhonchi. ABDOMEN: Distended, soft, nontender. No guarding or rigidity. No organomegaly. Hernial orifice intact. Bowel sounds normal. NEUROLOGIC: He was awake, alert, and responding appropriately. He had poor vision in his left eye and his right eye is normal. All other cranial nerves are intact. He moves all extremities without difficulty, ambulates without assistance or assistive devices. His intake over the last 24 hours was 1850, no output was recorded. LABORATORY DATA: Her lab work this morning showed a white cell count of 5500, hemoglobin 14.7, hematocrit 44.5, MCV 82 and a platelet count of 178,000. His chemistry showed a serum sodium of 141, potassium 3.7, chloride 105, bicarbonate 33, anion gap of 3, BUN 15, creatinine 1.2, estimated GFR was 58 mL per minute, his glucose was 89, and calcium was 9.2. Total bilirubin, AST, ALT, alkaline phosphatase were normal. His total protein was 7.2, albumin was 3.5. His TSH was slightly elevated ____. DISCHARGE MEDICATIONS: He was discharged home to continue on the following medications: Aspirin 325 mg once a day, atorvastatin calcium 40 mg at bedtime, benazepril 20 mg once a day, furosemide 20 mg once a day, metoprolol tartrate 25 mg p.o. b.i.d., Myrbetriq 50 mg once a day, multivitamin 1 tablet once a day, and tamsulosin 0.4 mg once a day. FINAL DISCHARGE DIAGNOSES: 1. Left ischemic optic neuropathy. 2. Old right lacunar infarct involving the basal ganglia and anterior limb of the internal capsule on the right side. 3. Hypertension. 4. Hyperlipidemia. 5. Coronary artery disease, status post stenting x 3 and eventually coronary artery bypass graft surgery. 6. He has also overactive bladder, chronic sinusitis, obstructive sleep apnea and central sleep apnea, benign prostatic hypertrophy. The patient was advised to follow with his rack puller and neurologist and dental ceramist helper at [place], [place]. ESVIN TODD MD DR: GAURAV/carol JOB#: [id number] / [id number]
--- NOTE | 2018-07-04 20:39 | CONS ---
DATE OF CONSULTATION: 07/03/2018 NEUROLOGY CONSULTATION REFERRING PHYSICIAN: Dr. Hale REASON FOR CONSULTATION: Headache and vision loss. HISTORY OF PRESENT ILLNESS: This is a 78-year-old right-handed male who was admitted through Emergency Room after he presented with 3-day history of left-sided headaches associated with some vision loss confined to the left eye. According to the patient, he was seen by motorcycle service technician in [place] regarding his left eye vision loss and he was told that he had a stroke affecting his vision. He underwent a brain MRI and MRA of the neck as well but the results of those tests are not available at this time. Apparently, he had a central vision loss of the left eye and possible scotoma probably secondary to left central retinal artery occlusion. According to the patient, he described his vision as seeing flashes of light. He underwent a laser surgery and corneal implant in the left eye several years ago, but he describes like a shadow came over his left for a few minutes. In the Emergency Room, the patient was alert and oriented. His initial nonenhanced head CT scan revealed no evidence of acute intracranial process, but it showed chronic small vessel ischemic changes and old lacunar infarct in the anterior limb of the end of the right internal capsule. He was also found to have elevated D-dimer as well. Currently, he denies chest pain, shortness of breath or palpitation, dysarthria, dysphagia, weakness or paresthesia. PAST MEDICAL HISTORY: Past medical history is significant for impaired vision of the left eye, hypertension, hyperlipidemia, coronary artery disease, status post stenting in 02/2016 and another 2 stent placement in 09/2008 and 09/2017, osteoarthritis, sleep apnea and benign prostatic hypertrophy. PAST SURGICAL HISTORY: Past surgical history is significant for coronary artery bypass graft and stent placement x 3, cornea transplant 4 years ago and cataract extraction, laser surgery in the left eye. SOCIAL HISTORY: The patient is . He has 1 daughter and son. He denies smoking, alcohol drinking, or illicit drug use. FAMILY HISTORY: Positive for coronary artery disease and stent placement in his 3 brothers, sister had heart disease and breast cancer. His father at the age of 76 from myocardial infarction and his mother at the age of 86 from myocardial infarction as well. CURRENT HOME MEDICATIONS: Lisinopril 20 mg daily, Lasix 10 mg daily, aspirin 325 mg daily, Lipitor 40 mg at bedtime, Flomax 0.4 mg daily, metoprolol 25 mg twice daily, aspirin 81 mg daily, mirabegron 50 mg p.o. daily. ALLERGIES: PENICILLIN AND PENICILLIN PRODUCTS. REVIEW OF SYSTEMS: A 10-point review of system was performed and consistent with history of present illness, mainly intermittent left-sided headaches with vision disturbances confined to the left eye. PHYSICAL EXAMINATION: GENERAL: Well-developed, well-nourished male, not in acute distress. He weighs 197.2 pounds. VITAL SIGNS: Blood pressure 157/78, respiratory rate 20, pulse is 69 and regular, temperature 98.4, oxygen saturation 93% on room air. HEENT: Normocephalic, atraumatic, otherwise unremarkable. NECK: Supple. Negative for carotid bruit, lymphadenopathy or thyromegaly. LUNGS: Clear to A and P. CARDIOVASCULAR: Regular rate and rhythm, normal S1 and S2. There is no S3, S4 or murmur. ABDOMEN: Soft. Bowel sounds positive. EXTREMITIES: Negative for cyanosis, clubbing or pitting edema. NEUROLOGIC: MENTAL STATUS: The patient is alert and oriented x 3. The speech is fluent. There is no language dysfunction. Memory, judgment, abstraction thinking are normal. The patient denies hallucination or delusion. CRANIAL NERVES: Pupils are equal and reactive. Extraocular movements are intact. There is no nystagmus. There is no facial motor or sensory deficit. The patient had mild scotoma of left eye. There is no facial motor or sensory deficit. Hearing is intact bilaterally. The palate is elevated symmetrically. Sternocleidomastoid muscles are powerful bilaterally. The patient shrugs his shoulders symmetrically and protrudes his tongue in the midline without fasciculation. MOTOR: No focal muscle bulk was seen. The tone is normal. The strength is 5/5 throughout. Sensory examination revealed normal pinprick, light touch, vibratory and position senses. Deep tendon reflexes were symmetric and active with absent Achilles responses. Gait and coordination are normal. IMAGING STUDIES: Initial nonenhanced head CT scan consistent with small vessel ischemic changes and anterior limb of the internal capsule infarct. Bilateral lower extremity venous Doppler study revealed no evidence of DVT. Carotid Doppler study revealed ____ formation, otherwise unremarkable. Chest x-ray revealed no acute abnormalities. LABORATORY DATA: D-dimer is high at 1.35. CBC revealed white blood cells of 5.5 thousand, hemoglobin 15.3, hematocrit 39.9, platelet count 166,000. Chemistry revealed sodium of 141, potassium 3.6, chloride 105, CO2 of 32, BUN 12, creatinine 1.1, glucose 76, and calcium 8.8. Urinalysis is negative for urinary tract infections and urine drug screen is negative as well. IMPRESSION: 1. Three- day history of left-sided headaches with ongoing central vision impairment-loss, confined to the left eye likely due to left central retinal artery occlusion; however, we are awaiting for the a complete medical record from [place] when he had extensive neurological workup along with ophthalmology workup. A transient ischemic attack should be also considered in the differential diagnosis with underlying multiple risk factors as described above including coronary artery disease. 2. Multiple medical problems include hypertension, coronary artery disease, hyperlipidemia, osteoarthritis, sleep apnea, and benign prostate hypertrophy. RECOMMENDATIONS: 1. Continue with current management initiated by Dr. Hale and with aspirin 325 mg p.o. daily. 2. Treat the underlying medical conditions. 3. Await for the medical record from [place]. M Braeden BRAGA MD DR: RIVER/carol JOB#: [id number] / [id number]
--- NOTE | 2018-07-04 23:10 | PN ---
DATE: 07/04/2018 SUBJECTIVE: The patient denies any new medical neurological complaints. He continues to have some blurred vision confined to the left eye. OBJECTIVE: GENERAL: Well-developed, well-nourished male, not in acute distress. VITAL SIGNS: Blood pressure 162/83, respiratory rate 20, pulse is 65, temperature 98.2, oxygen saturation 93% on room air. HEENT: Normocephalic, atraumatic, otherwise unremarkable. NECK: Supple. Negative for carotid bruit, lymphadenopathy or thyromegaly. LUNGS: Clear to A and P. CARDIOVASCULAR: Regular rate and rhythm, normal S1, S2. There is no S3, S4 or murmur. ABDOMEN: Soft. Bowel sounds positive. EXTREMITIES: Negative for cyanosis, clubbing, pitting edema. NEUROLOGIC: Normal mental status. Cranial nerves unremarkable except for decreased vision on the left eye, likely secondary to left central retinal artery occlusion. IMPRESSION: 1. Multiple medical problems include coronary artery disease status post coronary artery bypass surgery. 2. Rule out transient ischemic attack. The patient had mild atheromatous plaque of both carotid bifurcation, but no significant stenosis. 3. Status post left corneal transplant and cataract removal, osteoarthritis, benign prostate hypertrophy, hyperlipidemia, and hypertension. RECOMMENDATIONS: Continue with current management initiated by Dr. Hale. The patient is neurologically stable. We have not received any record from [place] regarding his recent brain MRI and MRA. The patient is eager to be discharged today and follow up with his laborer pole crew and neurologist in [place]. M Braeden BRAGA MD DR: RIVER/carol JOB#: [id number] / [id number]
== END 2018-07-04 12:05 | disposition home or self-care (01) | DRG 123 ==
LOC: ER 17:54 → 1 SOUTH 18:00
PROVIDERS: ADMIT Internal Medicine; ATTEND Internal Medicine
DX: H47.012 Ischemic optic neuropathy, left eye (principal); E78.00 Pure hypercholesterolemia, unspecified; E78.5 Hyperlipidemia, unspecified; G47.31 Primary central sleep apnea; G47.33 Obstructive sleep apnea (adult) (pediatric); H54.62 Unqualified visual loss, left eye, normal vision right eye; I10 Essential (primary) hypertension; I25.10 Atherosclerotic heart disease of native coronary artery without angina pectoris; J32.9 Chronic sinusitis, unspecified; M19.90 Unspecified osteoarthritis, unspecified site; N40.1 Benign prostatic hyperplasia with lower urinary tract symptoms; E11.9 Type 2 diabetes mellitus without complications; N32.81 Overactive bladder; G43.909 Migraine, unspecified, not intractable, without status migrainosus; R79.1 Abnormal coagulation profile; Z80.3 Family history of malignant neoplasm of breast; Z82.49 Family history of ischemic heart disease and other diseases of the circulatory system; Z86.73 Personal history of transient ischemic attack (TIA), and cerebral infarction without residual deficits; Z95.1 Presence of aortocoronary bypass graft; Z95.5 Presence of coronary angioplasty implant and graft; Z98.41 Cataract extraction status, right eye; Z94.7 Corneal transplant status; Z98.42 Cataract extraction status, left eye
CPT/HCPCS: 36415; 70450; 71045; 80048; 80053; 80061; 80076; 80307; 81001; 82550; 83690; 83735; 83880; 84443; 84484; 85025; 85027; 85379; 85610; 85651; 85730; 93005; 93880; 93970; 96360; 96361; J1650; J7120; 99285-25; G0479